=== PATIENT | male | born 2000 | race Caucasian/White ===

== ENCOUNTER 2023-11-21 10:51 | Emergency (ER) | payer OTHER, SELFPAY ==
[2023-11-21 10:52] VITALS: BP 130/80
--- NOTE | 2023-11-21 11:21 | ED.GENMED ---
History of Present Illness
<Raiza Prado PA-C - Last Filed: 11/21/23 16:06>
General
Chief Complaint: Abdominal Pain
Source: patient
Exam Limitations: none
Time Seen by Provider: 11/21/23 11:07
Nursing documentation reviewed up to this point in time: agreed with
Travel History
Have you had any contact with someone who has COVID-19?: No
Do you have any symptoms of coronavirus? Fever > 100 degrees, chills, cough, shortness of breath, sore throat, loss of taste or smell, muscle aches, or headache?: No
History of Present Illness
History of Present Illness:
Patient is a 23-year-old male with history of factor V Leiden presenting for evaluation of right sided abdominal pain. Symptoms started acutely around 8 AM this morning while he was driving to work. He endorses a sharp pain in the right flank/right
lower quadrant with some radiation around to his back. In addition�patient does report nausea and multiple episodes of vomiting this morning. Patient has had very little appetite today and has not eaten. Patient denies any radiation of pain into
his groin. Patient specifically denies any testicular pain. Patient does report feeling 'chilly 'although denies any known fevers. Patient does endorse some possible urinary frequency, although denies any dysuria. Patient states that he has not
ever noticed pain like this prior. Patient denies any chest pain or shortness of breath.
Patient denies any personal history of kidney stones.
Review of Systems
<Raiza Prado PA-C - Last Filed: 11/21/23 16:06>
Review of Systems
Allergies reviewed?: Yes
All Other Systems: ROS reviewed and negative except as documented in HPI and ROS
Phy Exam
<Raiza Prado PA-C - Last Filed: 11/21/23 16:06>
Physical Exam
Physical Exam:
Vitals: Patient's vital signs are stable. Afebrile
General: Patient is well appearing, no acute distress. Nontoxic-appearing
Skin: Warm and dry, no rashes or lesions
Head: Normocephalic, atraumatic
Eyes: Sclera nonicteric. EOMs intact. No nystagmus.
Throat: Protecting airway
Neck: Normal ROM, no cervical spine tenderness, no meningismus
Cardiac: Regular rate and rhythm, no murmurs.
Pulm: Normal respiratory effort, no wheezes, rales, rhonchi heard on exam.
Abdomen: Abdomen soft. Moderate abdominal tenderness in lower abdomen, most significant in right lower quadrant without rebound tenderness or guarding. Some pain in right flank. No CVA tenderness. No bruising noted.
Extremities: No evidence of cyanosis or edema. Good distal pulses.
Neuro: AAOx3. CN II-XII intact. No focal neurologic deficits.
Psychiatric: Normal affect.
Course
<Raiza Prado PA-C - Last Filed: 11/21/23 16:06>
Orders/Labs/Results
Orders:
Orders
11/21/23 11:21
0.9% Sodium Chloride 1000 ml [Nss] 1,000 ml IV BOLUS
Ketorolac [Toradol] 15 mg IV NOW STA
Ondansetron Injectable [Zofran] 4 mg IV NOW STA
11/21/23 11:37
Complete Blood Count/With Diff Urgent
Comprehensive Metabolic Panel Urgent
Lipase Urgent
Urinalysis Reflex To Culture Urgent
Date Specimen was Collected: 11/21/23
Time Specimen was Collected: 11:34
11/21/23 11:46
CT Abd/Pel (IV only)-DH only Urgent
Comment:
Reason For Exam: RLQ / R flank pain + N/V
Abnormal Lab Results
11/21/23
11:37
MCH 31.6 H pg
(27.0-31.0)
11/21/23 11:37
11/21/23 11:37
Vital Signs
Initial and Last Documented VS:
Initial Vital Signs
Temp Pulse Resp BP Pulse Ox
98.8 F 69 18 130/80 94
11/21/23 10:52 11/21/23 10:52 11/21/23 10:52 11/21/23 10:52 11/21/23 10:52
Last Documented Vital Signs
Temp Pulse Resp BP Pulse Ox
98.8 F 69 18 130/80 94
11/21/23 10:52 11/21/23 10:52 11/21/23 10:52 11/21/23 10:52 11/21/23 10:52
<Osvaldo Decker, DO - Last Filed: 11/21/23 13:55>
Orders/Labs/Results
Orders:
Orders
11/21/23 11:21
0.9% Sodium Chloride 1000 ml [Nss] 1,000 ml IV BOLUS
Ketorolac [Toradol] 15 mg IV NOW STA
Ondansetron Injectable [Zofran] 4 mg IV NOW STA
11/21/23 11:37
Complete Blood Count/With Diff Urgent
Comprehensive Metabolic Panel Urgent
Lipase Urgent
Urinalysis Reflex To Culture Urgent
Date Specimen was Collected: 11/21/23
Time Specimen was Collected: 11:34
11/21/23 11:46
CT Abd/Pel (IV only)-DH only Urgent
Comment:
Reason For Exam: RLQ / R flank pain + N/V
Abnormal Lab Results
11/21/23
11:37
MCH 31.6 H pg
(27.0-31.0)
11/21/23 11:37
11/21/23 11:37
Vital Signs
Initial and Last Documented VS:
Initial Vital Signs
Temp Pulse Resp BP Pulse Ox
98.8 F 69 18 130/80 94
11/21/23 10:52 11/21/23 10:52 11/21/23 10:52 11/21/23 10:52 11/21/23 10:52
Last Documented Vital Signs
Temp Pulse Resp BP Pulse Ox
98.8 F 69 18 130/80 94
11/21/23 10:52 11/21/23 10:52 11/21/23 10:52 11/21/23 10:52 11/21/23 10:52
<Raiza Prado PA-C - Last Filed: 11/21/23 16:06>
MDM/Problems Addressed
Differential Diagnosis Includes:
Not limited to: appendicitis, cystitis, pyelonephritis, kidney stones, constipation, biliary colic, cholecystitis
MDM/Problems Addressed:
23 year old male presenting with acute onset right flank pain with associated nausea and vomiting approximately 4 hours ago. Does report some recent urinary frequency, although denies any dysuria. Patient's vital signs are stable, he is afebrile.
Exam as above. Patient is well-appearing, nontoxic. He does have some vague abdominal discomfort on exam and right flank/right lower quadrant. Abdomen is soft with no rebound tenderness. Heart regular rate and rhythm. Lungs clear. Will check
basic labs, urinalysis. Will get CT/pelvis for further evaluation. Toradol, Zofran, IV fluids. Will monitor closely and reassess.
Into reassess patient at bedside. He does report improvement in pain following Toradol. However, he has vomited an additional few times while in the emergency department.
Labs noted. No clinically significant abnormalities. Urine shows no evidence of any blood or infection. CT pending. Patient remains well-appearing.
CT report noted. No evidence of acute intra-abdominal process. Appendix visualized and noted to be normal. No evidence of lymphadenopathy in abdomen. No evidence of gallbladder disease. There was found to be bilateral spondylolysis at L5.
Given the associated vomiting�do not suspect this to be the cause of patient's symptoms although the possibility of referred pain was considered. At this point I suspect likely a viral GI illness. Given acute and recent onset of symptoms�discussed
with patient and mom it is possible to miss an early appendicitis. Return precautions discussed at length. Patient at this point stable for with close return precautions, supportive care. He will follow-up with primary care.
Chronic conditions affecting care:
N/A
Acute Exacerbation and/or Progression of Chronic Illness:
N/A
<Raiza Prado PA-C - Last Filed: 11/21/23 16:06>
*Radiology
Radiology exam reviewed: preliminary read by ED provider and radiology read reviewed
*Pulse Oximetry
Patient hypoxic: no
*EKG
Interpreted by ED Provider?: NA
*Roentgenologist Interpretation
Rate: Roentgenologist- N/A
*Critical Care Note
Total Time (30-74mins, 75-104mins- exclusive of procedures): Not Applicable
ED Attending Note
<Raiza Prado PA-C - Last Filed: 11/21/23 16:06>
-
Portions of this chart may have been created with voice recognition software.� Occasional wrong word or��sound alike� substitutions may have occurred due to the inherent limitations of voice recognition software.
<Osvaldo Decker, - Last Filed: 11/21/23 13:55>
ED Attending Note
Patient seen and examined by attending physician: Yes
I performed a history and physical exam of patient and discussed management with resident, I reviewed resident's note and agree with documented findings and plan of care.: Yes
ED Attending Note:
I have reviewed and agree with patient treatment plan by Raiza Prado. My exam revealed 23-year-old male with mild right lower quadrant tenderness, no rebound or guarding. Afebrile. Nontoxic appearance. CT abdomen pelvis no acute findings,
spondylolisthesis seen. Patient stable for discharge. Suspect likely viral cause.
Discharge Plan
Departure
Patient Disposition: Home (Routine Discharge)
Date of Disposition: 11/21/23
Time of Disposition: 13:55
Patient with high blood pressure during this ER visit?: No
Condition: Good
Covid-19: Not Applicable
Discharge Problem:
Abdominal pain, Nausea & vomiting
Instructions: Nausea and Vomiting, Adult (DC), Abdominal Pain
Prescriptions:
New
ondansetron 4 mg tablet,disintegrating
4 mg PO Q8H PRN (Reason: nausea and vomiting) Qty: 10 0RF
No Action
albuterol sulfate 1 PUFF HFA aerosol inhaler
2 puff inhalation R Q4HPRN PRN (Reason: SOB)
Claritin:
1 tab PO DAILY
Flonase Nasal [place]:
1 spray intranasal DAILY
famotidine 20 MG tablet
20 mg PO BID Qty: 20 0RF
Referrals:
Abdiel Daniel, DO [Family Provider] - Follow up in 5-7 days
Stand Alone Forms: Return to Work
Activity Restrictions/Additional Instructions:
RETURN TO THE EMERGENCY DEPARTMENT WITH ANY FEVERS, CHILLS, PERSISTENT/WORSENING ABDOMINAL PAIN, INTRACTABLE NAUSEA/VOMITING, WORSENING IN CURRENT SYMPTOMS, OR ANY OTHER CONCERNS
-A prescription for Zofran has been sent to your pharmacy. You can take this up to every 8 hours as needed for severe nausea. As discussed�it is important stay well-hydrated. You can take Tylenol/Motrin as needed for discomfort. I recommend a
bland diet and advance as tolerated
-
Interventions
Interventions:
*Risk Screen - Suicide Last Done: 11/21/23 10:52
*General Assessment Last Done: 11/21/23 10:52
*Neglect/Abuse Screening Last Done: 11/21/23 10:52
ED- Fall Risk Assessment Last Done: 11/21/23 14:59
*Nursing Disposition Last Done: 11/21/23 14:59
RI-Kassyg-Zyjafzokxi Assessment Last Done: 11/21/23 12:13
Discharge Date and Time
Discharge Date/Time: 11/21/23 15:01
Print Language: LATVIAN
[2023-11-21] MEDS: NSS 1000 IV (11:36)
[2023-11-21] MEDS: ZOFRAN 4 MG IV (11:37)
[2023-11-21] MEDS: TORADOL 15 MG IV (11:37)
[2023-11-21 11:40] VITALS: BMI 28.5
[2023-11-21 11:50] LABS: % Basophils 0.6 % (0-2); % Eosinophils 1.1 % (0-6); % Immature Granulocytes 0.5 % (0-0.5); % Lymphocytes 28.9 % (20.5-51.1); % Monocytes 5.6 % (1.7-9.3); % Neutrophils 63.3 % (42.2-75.2); Absolute Basophils 0.1 10^3/uL (0-0.2); Absolute Eosinophils 0.1 10^3/uL (0-0.7); Absolute Lymphocytes 2.3 10^3/uL (1.2-3.4); Absolute Monocytes 0.4 10^3/uL (0.1-0.6); Hematocrit 43.9 % (39.0-52.0); Hemoglobin 15.2 g/dL (13.0-18.0); Mean Corp Hgb Conc. 34.6 g/dL (33.0-37.0); Mean Corpuscular Hgb 31.6 pg (27.0-31.0); Mean Corpuscular Volume 91.3 fL (80.0-94.0); Nucleated Red Blood Cells % 0 % (-); Red Blood Cell Count 4.81 10^6/uL (4.70-6.10); Red Cell Dist. Width 12.3 % (11.5-14.5); White Blood Cell Count 7.9 10^3/uL (4.8-10.8)
[2023-11-21 11:53] LABS: Urine Albumin Negative (Neg - Trace); Urine Bilirubin Negative (Negative); Urine Character Clear (Clear); Urine Color Yellow; Urine Glucose Negative (Negative); Urine Ketone Negative (Negative); Urine Leukocyte Negative (Negative); Urine Nitrite Negative (Negative); Urine Occult Blood Negative (Negative); Urine Specific Gravity 1.015 (<1.030); Urine Urobilinogen 1+ (Neg - 1+); Urine pH 6.5 (5.0-9.0)
[2023-11-21 12:02] LABS: ALT (SGPT) 22 U/L (0-50); AST (SGOT) 26 U/L (17-59); Albumin 4.7 g/dl (3.5-5.0); Alkaline Phosphatase 58 U/L (38-126); Blood Urea Nitrogen 15 mg/dl (9-20); Calcium 9.5 mg/dl (8.4-10.2); Carbon Dioxide 26 mmol/L (22-30); Chloride 103 mmol/L (98-107); Estimated Creatinine Clearance > 125 ml/min; Glucose 91 mg/dl (70-99); Lipase 72 U/L (23-300); Potassium 4.2 mmol/L (3.5-5.1); Sodium 140 mmol/L (135-145); Total Protein 7.7 g/dl (6.3-8.2); eGFR > 60.00
== END 2023-11-21 15:01 | disposition home or self-care (01) ==
LOC: EMR 10:51
PROVIDERS: Physician Assistant; EMERGENCY PHYSICIAN Emergency Medicine; FAMILY PHYSICIAN Family Medicine
DX: R10.9 Unspecified abdominal pain (principal); R11.2 Nausea with vomiting, unspecified; D68.51 Activated protein C resistance
CPT/HCPCS: 99284; 96374; 96375; 74177; 80053; 81003; 83690; 85025; Q9967

== ENCOUNTER 2023-11-26 07:49 | Emergency (ER) | payer OTHER, SELFPAY ==
[2023-11-26 07:59] VITALS: BP 121/71
--- NOTE | 2023-11-26 09:28 | ED.GENMED ---
History of Present Illness
General
Chief Complaint: Rectal Bleeding
Source: patient
Time Seen by Provider: 11/26/23 08:49
Travel History
Have you had any contact with someone who has COVID-19?: No
Do you have any symptoms of coronavirus? Fever > 100 degrees, chills, cough, shortness of breath, sore throat, loss of taste or smell, muscle aches, or headache?: No
History of Present Illness
History of Present Illness:
23-year-old male with past medical history of anxiety and depression presenting back to the emergency department for evaluation after being seen earlier this week for abdominal discomfort nausea and vomiting now noting he is still having pain but
today noticed a little bit of bright red blood in his stool. Patient states that he has had some loose stools but no watery diarrhea. He does note about 2 weeks ago had completed a course of a Medrol Dosepak and an antibiotic (patient unable to
recall the name of the antibiotic) for an upper respiratory infection patient also notes he was recently on a cruise ship which he returned from on November 03. No known sick contacts. Family history was only noted for IBS but no known history of
inflammatory bowel disease. No history of GI malignancies. Patient denies frequent NSAID use or significant alcohol use. Denies tobacco use. No other concerns
Past History
Past History
ED Past Medical History: Asthma and Psychiatric
ED Past Surgical History: None
Social History
Tobacco: Non-smoker
Alcohol: Occasional
Drug: None
Personal: Single
Living: with family
Review of Systems
Review of Systems
All Other Systems: ROS reviewed and negative except as documented in HPI and ROS
Phy Exam
Physical Exam
Physical Exam:
GENERAL: Alert , in no apparent distress
EYE: clear conjunctiva b/l
HEAD: NCAT
ENT: mmm.
CARDIAC: Regular rate and rhythm .
LUNGS: Clear breath sounds bilaterally, no acute respiratory distress, no wheezes/rales/rhonchi
ABDOMEN: Soft, generalized lower abdominal tenderness, no r/g, no cvat, negative Sharp sign, no tenderness at McBurney's point
Rectal exam: Light brown stool, heme-negative, no external hemorrhoids appreciated
NEUROLOGICAL: Alert and oriented
SKIN: Warm and dry, skin intact.
MUSCULOSKELETAL: well perfused.
PSYCH: Normal and appropriate interaction.
Scores
Heart Failure Risk
Heart Failure Risk Score: Not Applicable
Heart Score for Chest Pain Patients
STEMI patient?: Not applicable
Withdrawal Assessment of Alcohol
Withdrawal Assessment Completed?: Not applicable
Course
Orders/Labs/Results
Orders:
Orders
11/26/23 09:50
CRP [C-Reactive Protein] Urgent
Complete Blood Count/With Diff Urgent
Comprehensive Metabolic Panel Urgent
ESR [Erythrocyte Sed Rate] Urgent
Lipase Urgent
STOOL [C difficile Antigen & Toxins] Urgent
HUGO Source: Feces/Stool
Specimen Description:
Date Specimen was Collected: 11/26/23
Time Specimen was Collected: 09:43
Stool Culture Urgent
HUGO Source: Feces/Stool
Specimen Description:
Date Specimen was Collected: 11/26/23
Time Specimen was Collected: 09:43
11/26/23 09:52
Ondansetron Injectable [Zofran] 4 mg IV NOW STA
11/26/23 09:53
Ondansetron Injectable [Zofran] 4 mg .ROUTE .STK-MED ONE
Abnormal Lab Results
11/26/23
09:50
MCH 31.5 H pg
(27.0-31.0)
MPV 13.2 H fL
(7.4-10.4)
Carbon Dioxide 32 H mmol/L
(22-30)
Glucose 114 H mg/dl
(70-99)
Total Bilirubin 1.5 H mg/dl
(0.2-1.3)
11/26/23 09:50
11/26/23 09:50
Vital Signs
Initial and Last Documented VS:
Initial Vital Signs
Temp Pulse Resp BP Pulse Ox
98.0 F 66 20 121/71 98
11/26/23 07:59 11/26/23 07:59 11/26/23 07:59 11/26/23 07:59 11/26/23 07:59
Last Documented Vital Signs
Temp Pulse Resp BP Pulse Ox
98.0 F 51 20 129/73 96
11/26/23 07:59 11/26/23 09:46 11/26/23 09:46 11/26/23 09:46 11/26/23 09:46
MDM/Problems Addressed
Differential Diagnosis Includes:
Hemorrhoidal bleeding, gastroenteritis, inflammatory bowel disease, IBS, less concern for an acute surgical complication given negative CT 5 days ago and unremarkable labs
MDM/Problems Addressed:
23-year-old male presenting to the emergency department for reevaluation after being seen 5 days ago for abdominal discomfort and GI upset. Today he notes change in symptoms which included bright red blood intermixed with stool. I suspect that
this symptom is likely related to internal hemorrhoids. Exam is reassuring and patient is hemodynamically stable. Will recheck labs and I will add on inflammatory markers including an ESR and CRP. Will attempt to get stool studies given patient
was recently on antibiotics as antibiotic associated colitis is considered. Disposition pending labs.
*Pulse Oximetry
Patient hypoxic: no
*Critical Care Note
Total Time (30-74mins, 75-104mins- exclusive of procedures): Not Applicable
Data Reviewed
Review of Other/Old Records Reveals: Labs, Records and Radiology Studies
Source: patient, records and family
Patient Management
Escalation/DeEscalation of care consider admission/obs:
Patient's labs are all reassuring. C. difficile study negative. Patient is stable for outpatient management. Provided with information for GI. Aware of return precautions to the emergency department.
ED Attending Note
-
Portions of this chart may have been created with voice recognition software.� Occasional wrong word or��sound alike� substitutions may have occurred due to the inherent limitations of voice recognition software.
Discharge Plan
Departure
Patient Disposition: Home (Routine Discharge)
Date of Disposition: 11/26/23
Time of Disposition: 11:37
Patient with high blood pressure during this ER visit?: No
Discharge Problem:
Abdominal pain, Bleeding hemorrhoids
Instructions: Abdominal Pain
Prescriptions:
No Action
cetirizine [Zyrtec] 10 mg Tablet
10 mg PO DAILYPRN PRN (Reason: allergies)
Theragen Tablet
1 tab PO DAILY
sertraline 25 mg Tablet
25 mg PO DAILY
ondansetron 4 mg tablet,disintegrating
4 mg PO Q8HPRN PRN (Reason: nausea and vomiting)
Referrals:
Lovely Mays MD [Active] - (GI)
Abdiel Daniel, [Family Provider] -
Stand Alone Forms: Return to Work
Interventions
Interventions:
*Risk Screen - Suicide Last Done: 11/26/23 07:59
*General Assessment Last Done: 11/26/23 07:59
*Neglect/Abuse Screening Last Done: 11/26/23 07:59
*Nursing Disposition Last Done: 11/26/23 11:46
MA-Ynwidc-Fpysxcujni Assessment Last Done: 11/26/23 10:14
ED- Cardiac Assessment Last Done: 11/26/23 10:14
ED-Male Genitourinary Assessment Last Done: 11/26/23 10:14
ED- Pulmonary Assessment Last Done: 11/26/23 10:14
Discharge Date and Time
Discharge Date/Time: 11/26/23 11:46
Print Language: BELIZEAN
[2023-11-26 09:45] VITALS: BMI 30.1
[2023-11-26 09:46] VITALS: BP 129/73
[2023-11-26] MEDS: ZOFRAN 4 MG IV (09:54)
[2023-11-26 10:04] LABS: % Basophils 0.4 % (0-2); % Eosinophils 1.5 % (0-6); % Immature Granulocytes 0.4 % (0-0.5); % Lymphocytes 21.2 % (20.5-51.1); % Monocytes 5.6 % (1.7-9.3); % Neutrophils 70.9 % (42.2-75.2); Absolute Eosinophils 0.1 10^3/uL (0-0.7); Absolute Lymphocytes 1.6 10^3/uL (1.2-3.4); Absolute Monocytes 0.4 10^3/uL (0.1-0.6); Absolute Neutrophils 5.2 10^3/uL (1.4-6.5); Hematocrit 44.2 % (39.0-52.0); Hemoglobin 15.3 g/dL (13.0-18.0); Mean Corp Hgb Conc. 34.6 g/dL (33.0-37.0); Mean Corpuscular Hgb 31.5 pg (27.0-31.0); Mean Corpuscular Volume 90.9 fL (80.0-94.0); Nucleated Red Blood Cells % 0 % (-); Red Blood Cell Count 4.86 10^6/uL (4.70-6.10); Red Cell Dist. Width 12.6 % (11.5-14.5); White Blood Cell Count 7.3 10^3/uL (4.8-10.8)
[2023-11-26 10:15] LABS: ALT (SGPT) 21 U/L (0-50); AST (SGOT) 27 U/L (17-59); Albumin 4.7 g/dl (3.5-5.0); Alkaline Phosphatase 56 U/L (38-126); Blood Urea Nitrogen 12 mg/dl (9-20); Calcium 9.9 mg/dl (8.4-10.2); Carbon Dioxide 32 mmol/L (22-30); Chloride 100 mmol/L (98-107); Estimated Creatinine Clearance 115 ml/min; Glucose 114 mg/dl (70-99); Lipase 129 U/L (23-300); Potassium 4.3 mmol/L (3.5-5.1); Sodium 139 mmol/L (135-145); Total Bilirubin 1.5 mg/dl (0.2-1.3); Total Protein 7.7 g/dl (6.3-8.2); eGFR > 60.00
[2023-11-26 10:20] LABS: C-Reactive Protein < 5.00 mg/L (0.0-10.00)
[2023-11-26 11:41] LABS: Erythrocyte Sed Rate 8 mm/hour (0-20); Mean Platelet Volume 13.2 fL (7.4-10.4); Platelet Count 144 10^3/uL (130-400)
== END 2023-11-26 11:46 | disposition home or self-care (01) ==
LOC: EMR 07:49
PROVIDERS: Physician Assistant Medical; EMERGENCY PHYSICIAN Emergency Medicine; FAMILY PHYSICIAN Family Medicine
DX: R10.9 Unspecified abdominal pain (principal); K64.9 Unspecified hemorrhoids; F41.9 Anxiety disorder, unspecified; F32.A Depression, unspecified
CPT/HCPCS: 99284; 96374; 80053; 83690; 85025; 85652; 86140; 87045; 87046; 87324; 87427; 87449

== ENCOUNTER 2025-02-09 22:20 | Emergency (ER) | payer OTHER, SELFPAY ==
[2025-02-09 22:30] VITALS: BP 128/83
[2025-02-09 22:52] LABS: Hematocrit 46.4 % (39.0-52.0); Hemoglobin 16.1 g/dL (13.0-18.0); Mean Corp Hgb Conc. 34.7 g/dL (33.0-37.0); Mean Corpuscular Volume 89.1 fL (80.0-94.0); Nucleated Red Blood Cells % 0 % (-); Red Cell Dist. Width 12.2 % (11.5-14.5)
[2025-02-09 23:09] LABS: ALT (SGPT) 41 U/L (0-50); AST (SGOT) 42 U/L (17-59); Albumin 5.5 g/dl (3.5-5.0); Alkaline Phosphatase 63 U/L (38-126); Blood Urea Nitrogen 19 mg/dl (9-20); Calcium 10.0 mg/dl (8.4-10.2); Carbon Dioxide 27 mmol/L (22-30); Chloride 101 mmol/L (98-107); Glucose 98 mg/dl (70-99); Lipase 78 U/L (23-300); Potassium 4.9 mmol/L (3.5-5.1); Sodium 138 mmol/L (135-145); Total Protein 9.1 g/dl (6.3-8.2); eGFR > 60.00
[2025-02-09 23:13] LABS: Platelet Count 132 10^3/uL (130-400)
[2025-02-10 01:26] VITALS: BP 153/84
[2025-02-10 01:29] VITALS: BMI 29.9
[2025-02-10] MEDS: NSS 1000 IV (01:43)
[2025-02-10 03:29] LABS: Urine Character Clear (Clear)
[2025-02-10 03:39] VITALS: BP 136/87
--- NOTE | 2025-02-10 04:25 | ED.GENMED ---
History of Present Illness
General
Chief Complaint: Abdominal Symptoms
Source: patient
Exam Limitations: none
Time Seen by Provider: 02/10/25 01:54
Nursing documentation reviewed up to this point in time: agreed with
History of Present Illness
History of Present Illness:
Note:
CHIEF COMPLAINT(S)
Lower left abdominal pain and vomiting.
HISTORY OF PRESENT ILLNESS
The patient is a 24-year-old male presenting with severe pain in the lower left abdomen, accompanied by profuse sweating and persistent vomiting for about an hour and a half. The patient describes unusual abdominal noises in the affected area and
fears the possibility of a hernia, although the pain is more centralized near the umbilicus. On examination, the pain is most intense in the lower left abdomen, with less intensity on the right. He reported issues with constipation earlier and noted
minor relief after using the bathroom, which was not complete. There is no reported blood in the stool. Symptoms began around 6 PM today. The patient denies consuming any unusual foods and is uncertain about fever but reports feeling nauseous since
waking. No chest pain or dyspnea was reported. The patient has a history of unspecified lower back issues but denies any other significant medical history apart from suspicion of a hernia.
PHYSICAL EXAM
General: Alert, no acute distress.
Skin: Warm, dry.
Head: Normocephalic, atraumatic.
Neck: Supple, trachea midline.
Eyes, Ears, Nose, Mouth, and Throat: Oral mucosa moist.
Cardiovascular: Normal peripheral perfusion, no edema.
Respiratory: Respirations non-labored.
Gastrointestinal: Abdomen nondistended.
Back: Normal range of motion, normal alignment.
Musculoskeletal: Normal range of motion, normal strength.
Neurological: Alert and oriented to person, place, time, and situation, no focal neurological deficit observed.
Psychiatric: Cooperative, appropriate mood & affect.
PROBLEM LIST
Acute Problems:
- Lower left abdominal pain
- Vomiting
- Constipation
PLAN
- Conduct blood work and a computed tomography (CT) scan of the abdomen to identify the underlying cause of symptoms.
- Differential diagnoses discussed include diverticulitis, bowel obstruction, appendicitis, and referred pain.
DIFFERENTIAL DIAGNOSIS
The Differential Diagnosis includes, in no particular order and is not limited to:
- Diverticulitis
- Bowel obstruction
- Appendicitis
- Hernia
- Gastroenteritis
- Inflammatory bowel disease
- Peptic ulcer disease
- Gastric ulcer
- Pancreatitis
- Colitis
Disposition:
SUMMARY OF ENCOUNTER
The patient, a 24-year-old male, presented to the emergency department with severe lower left abdominal pain and vomiting. The pain was intense in the specified region and associated with nausea since waking. There was no report of blood in the
stool. A CT scan of the abdomen was conducted, revealing enteritis as the underlying condition for the symptoms. The patient reported no fever, chills, chest pain, or dyspnea.
DISPOSITION
The patient is to be discharged home with a diagnosis of enteritis.
ASSESSMENT
The assessment determined that the patients symptoms were due to enteritis, as evidenced by the CT scan findings.
PLAN
The patient will adhere to a clear liquid diet and is advised to return to the emergency department if there is any change in symptoms or personal health concerns.
PATIENT EDUCATION AND COUNSELING
The patient was educated about their diagnosis of enteritis and advised to maintain a clear liquid diet. Instructions were given to monitor symptoms closely and return to the emergency department if there are any changes or concerns regarding their
health.
FOLLOW-UP INSTRUCTIONS
The patient is instructed to return to the emergency department if there is any change in symptoms or personal health.
MEDICAL DECISION MAKING
1. Number and Complexity of Problems Addressed:
Chronic conditions affecting care. Differential diagnoses considered included diverticulitis, bowel obstruction, appendicitis, and referred pain, but ultimately enteritis was diagnosed.
2. Data:
Category [address] scan of the abdomen was ordered and independently interpreted, revealing enteritis.
-Risk:
Consideration of Admission/Observation: Escalation of care including admission/observation was considered given the complexity and risk of the patients presenting complaint, but the patient was deemed safe for outpatient management with close
follow-up. The work-up was reassuring and did not reveal any acute, life-threatening processes.
DIAGNOSIS
Enteritis (ICD-10: K52.9)
Past History
Past History
ED Past Medical History: Asthma and Psychiatric
ED Past Surgical History: None
Social History
Tobacco: Non-smoker
Alcohol: Occasional
Drug: None
Personal: Single
Living: with family
Phy Exam
Physical Exam
Physical Exam:
.
Course
Orders/Labs/Results
Orders:
Orders
02/09/25 22:40
Complete Blood Count/With Diff Urgent
Comprehensive Metabolic Panel Urgent
Lipase Urgent
02/10/25 01:42
0.9% Sodium Chloride 1000 ml [Nss] 1,000 ml IV BOLUS
02/10/25 02:10
CT Abd/pelvis W Iv Cont Urgent
Comment:
Reason For Exam: llq abd pain
02/10/25 02:35
Lactic Acid Q4H
Comment: CANCEL 2nd LACTIC ACID IF 1st LACTIC ACID IS LESS THAN 2
02/10/25 02:38
Urinalysis Reflex To Culture Urgent
Date Specimen was Collected: 02/10/25
Time Specimen was Collected: 02:36
Urine Microscopic Reflex Cult Urgent
02/10/25 06:15
Lactic Acid Q4H
Comment: CANCEL 2nd LACTIC ACID IF 1st LACTIC ACID IS LESS THAN 2
Abnormal Lab Results
02/09/25 02/10/25
22:40 02:38
MPV 13.9 H fL
(7.4-10.4)
Absolute Neuts (auto) 7.8 H 10^3/uL
(1.4-6.5)
Absolute Lymphs (auto) 0.9 L 10^3/uL
(1.2-3.4)
Neutrophils % 81.0 H %
(42.2-75.2)
Lymphocytes % 8.9 L %
(20.5-51.1)
Total Protein 9.1 H g/dl
(6.3-8.2)
Albumin 5.5 H g/dl
(3.5-5.0)
Urine Ketones 3+ A
(Negative)
Ur Occult Blood Reflex 1+ A
(Negative)
Urine Albumin (Reflex) 1+ A
(Neg - Trace)
02/09/25 22:40
02/09/25 22:40
Vital Signs
Initial and Last Documented VS:
Initial Vital Signs
Temp Pulse Resp BP Pulse Ox
98.3 F 92 18 128/83 98
02/09/25 22:30 02/09/25 22:30 02/09/25 22:30 02/09/25 22:30 02/09/25 22:30
Last Documented Vital Signs
Temp Pulse Resp BP Pulse Ox
98.1 F 71 16 136/87 98
02/10/25 01:26 02/10/25 01:26 02/10/25 01:26 02/10/25 03:39 02/10/25 03:40
*Radiology
Radiology exam reviewed: radiology read reviewed
*Pulse Oximetry
SaO2: 98
Oxygen Mode of Delivery: Room air
Patient hypoxic: no
*Critical Care Note
Total Time (30-74mins, 75-104mins- exclusive of procedures): Not Applicable
Update Note
Update Note:
NAME: WESTLEY PADILLA
DATE OF EXAM: 02/10/2025
Patient No: [id number]
Physician: MIKE
Date of : 2000
Past Medical History (entered by Technologist):
Reason For Exam (entered by Technologist):
Other Notes (entered by Technologist): on antibiotics for toe infection, now with n/v abd pain
Additional Information (per [facility] Radiologist):
CT ABDOMEN/PELVIS WITH CONTRAST
IMPRESSION:
1. Mildly prominent loops of small bowel within the central abdomen with air-fluid levels may represent ileus and/or enteritis.
2. No bowel obstruction. Normal gallbladder and appendix.
Incidentals:
- Bladder wall thickening, can be correlated with urinalysis.
- No obstructive uropathy.
- No hepatic or pancreatic mass.
- No abdominal aortic aneurysm.
- No acute osseous abnormality.
- No acute abnormality within the visualized lungs.
- No acute abnormality within the visualized soft tissues.
Case finalized on Feb 10 2025 3:30AM ET
Deshaun Rivas M.D.
This report has been electronically signed and verified by the Radiologist whose name is printed above.
ED Attending Note
-
Portions of this chart may have been created with voice recognition software.� Occasional wrong word or��sound alike� substitutions may have occurred due to the inherent limitations of voice recognition software.
Discharge Plan
Departure
Patient Disposition: Home (Routine Discharge)
Date of Disposition: 02/10/25
Time of Disposition: 04:26
Patient with high blood pressure during this ER visit?: Yes
Discharge Problem:
Enteritis, Abdominal pain
Instructions: Clear Liquid Diet, Abdominal Pain, BLOOD PRESSURE
Prescriptions:
No Action
cetirizine [Zyrtec] 10 mg Tablet
10 mg PO DAILYPRN PRN (Reason: allergies)
Theragen Tablet
1 tab PO DAILY
sertraline 25 mg Tablet
50 mg PO DAILY
buspirone 10 mg Tablet
10 mg PO DAILY
Referrals:
Abdiel Daniel, DO [Family Provider, Family Practice]
Activity Restrictions/Additional Instructions:
Thank You for choosing [facility].
It was a pleasure meeting you and taking part in your care. We hope for your continued healing and wellness.
Please read discharge instructions in their entirety. However, they are for general education and may not describe your exact diagnosis at discharge. Information on your ER visit and medical conditions were discussed with you along with appropriate
follow up information...
If indicated, please take your medications as instructed and indicated on discharge paperwork.
Please schedule a follow up appointment as directed. Call to schedule an appointment
Please return to the emergency department with ANY change in, persisting, or worsening of symptoms. If any of your symptoms do not improve, or persist, or become more severe within 6-12 hours, please return to the emergency department for further
care.
Please return to the emergency department if you develop a headache, neck pain/stiffness, fever greater than 100.4F, chest pain, shortness of breath, persistent nausea, vomiting, slurred speech, difficulty walking, numbness/tingling, weakness, signs
of infection or any other symptoms that are worrisome to you.
If you have any questions or concerns please do not hesitate to call the Hospital at or E-mail me directly at [email or web address]
Interventions
Interventions:
*Risk Screen - Suicide Last Done: 02/09/25 22:21
*General Assessment Last Done: 02/10/25 01:50
*Neglect/Abuse Screening Last Done: 02/09/25 22:33
*ED- Fall Risk Assessment Last Done: 02/10/25 01:50
*ED COVID-19 Vaccine History Last Done: 02/10/25 01:50
WM-Uljled-Rbkybxjrfn Assessment Last Done: 02/10/25 01:50
Discharge Date and Time
Print Language: NEPALI
[2025-02-10 05:22] LABS: Urine Squamous Cell 0-2 /LPF (Few)
[2025-02-10 05:23] LABS: Urine Red Blood Cell 0-2 /HPF (0-2); Urine White Cell 0-2 /HPF (0-5)
== END 2025-02-10 04:40 | disposition home or self-care (01) ==
LOC: EMR 22:20
PROVIDERS: EMERGENCY PHYSICIAN Student in an Organized Health Care Education/Training Program; FAMILY PHYSICIAN Family Medicine
DX: K52.9 Noninfective gastroenteritis and colitis, unspecified (principal); K59.00 Constipation, unspecified; J45.909 Unspecified asthma, uncomplicated
CPT/HCPCS: 99284; 74177; 80053; 81003; 81015; 83605; 83690; 85025; Q9967